=== PATIENT | female | born 1965 | race Caucasian/White ===

== ENCOUNTER 2025-02-23 15:22 | Inpatient (IN) | payer BC, OTHER ==
[2025-02-23] MEDS ORDERED: MORPHINE 4 MG/ML SYR ONE (16:11)
[2025-02-23] MEDS ORDERED: ONDANSETRON 4 MG/2 ML VIAL ONE ×2 (16:11→21:20)
[2025-02-23] MEDS ORDERED: FAMOTIDINE 20 MG/2 ML VIAL IV ONE (16:12)
[2025-02-23] MEDS ORDERED: NA CHLORIDE 0.9% 1,000 ML ONE (16:12)
[2025-02-23 16:32] LABS: Absolute Eosinophils 0.1 K/uL (0-0.5); Absolute Lymphocytes (CBC) 2.8 K/uL (0.7-4.9); Absolute Monocytes 1.2 K/uL (0.1-1.3); Absolute Neutrophil 6.4 K/uL (1.8-8.0); Basophils % 0.4 % (0-1.3); Eosinophils % 0.7 % (0-4.4); Hematocrit 43.6 % (36.0-45.0); Hemoglobin 15.2 g/dL (12.0-15.0); Lymphocytes % 26.5 % (15.3-44.8); MCH 31.2 pg (27.0-35.0); MCV 89.2 fL (80-100); MPV 8.3 fL (7.6-11.3); Monocytes % 11.8 % (3.3-12.3); Neutrophils % 60.6 % (41.7-73.7); Nucleated Red Blood Cells % 0.1 % (0-0); Platelets 349 thou/uL (152-406); RBC Red Blood Cell Count 4.89 M/uL (3.86-4.86); Red Cell Distribution Width 14.9 % (12.1-15.2)
[2025-02-23 17:05] LABS: Albumin 3.9 g/dL (3.4-5.0); Albumin/Globulin Ratio 1.1 (1.1-1.8); Anion Gap 13.1 mEq/L (5.0-15.0); Bilirubin Total 0.5 mg/dL (0.2-1.0); Globulin 3.7 g/dL (2.3-3.5); Potassium 2.7 mEq/L (3.5-5.1); Protein, Total 7.6 g/dL (6.4-8.2); Troponin High Sensitivity 29.9 pg/mL (<58.9)
--- NOTE | 2025-02-23 18:38 | RAD REPORT ---
EXAMINATION: Abdomen Pelvis W Contrast CLINICAL INDICATION: Female, 59 years old.ABD PAIN TECHNIQUE: CT abdomen and pelvis was performed, after the administration of IV contrast, as per depar tment protocol. Axial, sagittal and coronal reconstructions were obtained. One or more of the following dose reduction techniques were used: Automated exposure control, adjustment of the mA and/o r kV according to patient size, and/or iterative reconstruction. Unless otherwise specified, incidental findings do not require dedicated imaging follow-up. [id number]. COMPARISON: Gastric emptying study dated 04/13/2016. FINDINGS: LOWER CHEST: No acute process identified.No significant pericardial effusion. UPPER GI: The stomach is distended with fluid. LIVER: Hepatic steatosis, but otherwise unremarkable. GALLBLADDER/BILE DUCTS: Cholecystectomy. Moderate extrahepatic biliary ductal dilatation. This could be secondary to the post-cholecystectomy state. Recommend correlation with LFT's. If abnormal, consider MRCP for further evaluation. ?Mild intrahepatic biliary duct dilatation. PANCREAS: No mass, ductal dilation, or trevor-pancreatic fluid. SPLEEN: Unremarkable. ADRENALS: No adrenal masses. KIDNEYS AND URETERS: No hydronephrosis.No suspicious renal mass.No renal calculi.No ureteral calculi. ABDOMINAL AORTA AND OTHER VESSELS: Moderate atherosclerotic changes without aortic aneurysm. PERITONEUM: No abnormal free fluid. No free air. LYMPH NODES: No pathologic lymphadenopathy. ABDOMINAL WALL: Unremarkable SMALL BOWEL/COLON: No bowel obstruction. Most of the proximal small bowel is clustered in the right h emiabdomen. The duodenum, for example, does not cross midline. URINARY BLADDER: Underdistended but grossly unremarkable. REPRODUCTIVE ORGANS: No pathologic process. MUSCULOSKELETAL: Bone graft harvest site at the left iliac bone.. Mild disc height loss L5-S1. ADDITIONAL FINDINGS: None. IMPRESSION: Fluid distended stomach. 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 No bowel obstruction identified. Gastric outlet obstruction versus gastroparesis.
--- NOTE | 2025-02-23 19:35 | ER ---
Nurse's Notes [facility] Name: Ayla Galindo Age: 59 yrs Sex: Female : 1965 Arrival Date: 02/23/2025 Time: 15:22 Bed 4 Private MD: Diagnosis: Hematemesis;Hyponatremia;Hypokalemia Presentation: 02/23 16:17 Chief complaint: Patient states: Upper abdominal and chest pain, N/V x approx 2 weeks. ph Coronavirus screen: Vaccine status: Patient reports receiving the 1st dose of the Covid vaccine. Ebola Screen: No symptoms or risks identified at this time. Initial Sepsis Screen: Does the patient meet any 2 criteria? No. Patient's initial sepsis screen is negative. Does the patient have a suspected source of infection? No. Patient's initial sepsis screen is negative. Risk Assessment: Do you want to hurt yourself or someone else? Patient reports no desire to harm self or others. Onset of symptoms was February 23, 2025. 16:17 Method Of Arrival: Ambulatory ph 16:17 Acuity: KARLOS 2 ph Triage Assessment: 16:21 General: Appears in no apparent distress. comfortable, slender, well groomed, Behavior ph is calm, cooperative, appropriate for age. Pain: Complains of pain in chest and abdomen. Neuro: Level of Consciousness is awake, alert, obeys commands, Oriented to person, place, time, situation. Cardiovascular: Reports chest pain, nausea, vomiting. Respiratory: Airway is patent Respiratory effort is even, unlabored. GI: Reports lower abdominal pain, upper abdominal pain, nausea, vomiting. Derm: Skin is pink, warm \T\ dry. Musculoskeletal: Circulation, motion, and sensation intact. Range of motion: intact in all extremities. Historical: - Allergies: 16:19 SHELLFISH; ph - Home Meds: 16:19 Clonidine Oral [Active]; ph - PMHx: 16:19 Hypertensive disorder; Asthma; ph - PSHx: 16:19 Cholecystectomy; section; ph - Immunization history:: Adult Immunizations unknown. - Infectious Disease History:: Denies. - Social history:: Smoking status: unknown. - Family history:: not pertinent. Screenin:23 [facility] ED Fall Risk Assessment (Adult) History of falling in the last 3 months, ph including since admission No falls in past 3 months (0 pts) Confusion or Disorientation No (0 pts) Intoxicated or Sedated No (0 pts) Impaired Gait No (0 pts) Mobility Assist Device Used No (0 pt) Altered Elimination No (0 pt) Score/Fall Risk Level 0 - 2 = Low Risk Oriented to surroundings, Maintained a safe environment, Hourly rounding (assess needs \T\ fall precautionary measures) done. Abuse screen: Denies threats or abuse. Denies injuries from another. Nutritional screening: No deficits noted. Tuberculosis screening: No symptoms or risk factors identified. Assessment: 17:29 General: SEE TRIAGE ASSESSMENT. ph 18:46 Reassessment: Patient appears in no apparent distress at this time. No changes from ld1 previously documented assessment. Patient and/or family updated on plan of care and expected duration. Pain level reassessed. 21:50 Pain: Pain does not radiate. Pain began gradually. kd3 Vital Signs: 16:17 BP 136 / 95; Pulse 98; Resp 18; Temp 98; Pulse Ox 97% on R/A; Weight 49.9 kg; Height 5 ph ft. 6 in. ; 17:28 BP 146 / 72; Pulse 86; Resp 18; Pulse Ox 98% on R/A; ph 18:46 BP 128 / 68; Pulse 88; Resp 18; Pulse Ox 95% on R/A; ld1 21:49 BP 121 / 71; Pulse 84; Resp 19; Pulse Ox 98% on R/A; kd3 16:17 Body Mass Index 17.75 (49.90 kg, 167.64 cm) ph ED Course: 15:23 Patient arrived in ED. gl 15:25 Will Heart MD is Attending Physician. rt 15:25 Arm band placed on Patient placed in an exam room, on a stretcher. ll1 15:40 Initial lab(s) drawn, by me, sent to lab. Inserted saline lock: 20 gauge in left ld1 antecubital area, using aseptic technique. Blood collected. Flushed with 10 mL NS. 16:17 Alma Delia Dobbins, RN is Primary Nurse. ph 16:19 Triage completed. ph 16:23 Patient maintains SpO2 saturation greater than 95% on room air. ph 16:24 Patient has correct armband on for positive identification. Placed in gown. Bed in low ph position. Call light in reach. Side rails up X 1. school lunch monitor on. Pulse ox on. NIBP on. Door closed. Noise minimized. Warm blanket given. Pillow given. 17:03 Radiology exam delayed due to lab results not completed at this time. (BUN/Creatinine). nj 18:14 CT Abd/Pelvis - IV Contrast Only In Process Unspecified. EDMS 19:33 Prince Fletcher MD is Hospitalizing Provider. rt 21:16 Inserted saline lock: 22 gauge in left forearm, using aseptic technique. kd3 21:50 Provided Education on: admission . kd3 21:50 No provider procedures requiring assistance completed. Patient admitted, IV remains in kd3 place. Administered Medications: 16:17 Drug: Famotidine IVP 20 mg IVP once; dilute with 10 mL 0.9% NaCl; give over 2 minutes ld1 Route: IVP; Site: left antecubital; 19:02 Follow up: Response: No adverse reaction ph 16:17 Drug: Ondansetron IVP 4 mg IVP once; over 2 minutes Route: IVP; Site: left antecubital; ld1 19:02 Follow up: Response: No adverse reaction ph 16:17 Drug: morphine IVP or IV 4 mg IVP once over 4 mins Route: IVP; Infused Over: 4 mins; ld1 Site: left antecubital; 19:02 Follow up: Response: No adverse reaction ph 16:17 Drug: NS 0.9% IV 1000 ml IV at 1 bolus Per protocol; to be given as a bolus over 60 ld1 minutes Route: IV; Rate: 1 bolus; Site: left antecubital; 17:30 Follow up: Response: No adverse reaction; IV Status: Completed infusion; IV Intake: ph 1000ml 21:49 Drug: Pantoprazole IVP 80 mg IVP once Route: IVP; Site: left forearm; kd3 21:49 Drug: Pantoprazole IV 8 mg/hr IV at 25 ml/hr continuous; (Standard dilution is 80 mg in kd3 250 mL NS) Route: IV; Rate: 25 ml/hr; Site: left forearm; 21:49 Drug: Potassium Chloride IV 40 mEq IV at calculated rate once; administer over 4 hours kd3 Route: IV; Rate: calculated rate; Site: left antecubital; 21:49 Drug: Ondansetron IVP 4 mg IVP once; over 2 minutes Route: IVP; Site: left forearm; kd3 Medication: 16:23 VIS not applicable for this client. ph Intake: 17:30 IV: 1000ml; Total: 1000ml. ph Outcome: 19:34 Decision to Hospitalize by Provider. rt 21:50 Admitted to Med/surg accompanied by dandy aguero 21:50 Condition: stable 21:50 Discharge instructions given to patient, Instructed on the need for admit, Demonstrated understanding of instructions, Prescriptions given X 21:50 Patient left the ED. kd3 Signatures: Dispatcher [employer] EDAlma Delia Almanza RN RN ph Kike Nunez Lynsay, RN RN ll1 Essie Kan RN RN ld1 Radha Bunch RN RN kd3 Will Heart MD MD rt Tia Hurley, Reg Reg gl Corrections: (The following items were deleted from the chart) 16:19 16:17 BP 136 / 95; Pulse 98bpm; Resp 18bpm; Pulse Ox 97% RA; ph ph
--- NOTE | 2025-02-23 19:36 | EDPHYS ---
Physician Documentation [facility] Name: Ayla Galindo Age: 59 yrs Sex: Female : 1965 Arrival Date: 02/23/2025 Time: 15:22 Bed 4 Private MD: ED Physician Will Heart HPI: 02/23 17:54 This 59 yrs old Female presents to ER via Ambulatory with complaints of Chest Pain. rt 17:54 Patient with known gastric and duodenal ulcers presents to the ED with 2 weeks of rt worsening of abdominal pain, nausea, vomiting. Patient states that she started developing a chest pain. States that she was vomiting blood yesterday and today. Was seen at the GI center today, sent for further eval from the ep technologist. Denies other acute complaints at this time, symptoms are moderate in severity, no other aggravating or alleviating factors.. Historical: - Allergies: 16:19 SHELLFISH; ph - Home Meds: 16:19 Clonidine Oral [Active]; ph - PMHx: 16:19 Hypertensive disorder; Asthma; ph - PSHx: 16:19 Cholecystectomy; section; ph - Immunization history:: Adult Immunizations unknown. - Infectious Disease History:: Denies. - Social history:: Smoking status: unknown. - Family history:: not pertinent. ROS: 17:54 Constitutional: Negative for fever, chills, and weight loss, Respiratory: Negative for rt shortness of breath, cough, wheezing, and pleuritic chest pain, MS/Extremity: Negative for injury and deformity, Skin: Negative for injury, rash, and discoloration, 17:54 Cardiovascular: Positive for chest pain, Negative for edema, 17:54 Abdomen/GI: Positive for nausea and vomiting, hematemesis, Exam: 17:54 Constitutional: This is a well developed, well nourished patient who is awake, alert, rt and in no acute distress. Head/Face: Normocephalic, atraumatic. Chest/axilla: Normal chest wall appearance and motion. Nontender with no deformity. No lesions are appreciated. Cardiovascular: Regular rate and rhythm with a normal S1 and S2. No gallops, murmurs, or rubs. Normal PMI, no JVD. No pulse deficits. Respiratory: Lungs have equal breath sounds bilaterally, clear to auscultation and percussion. No rales, rhonchi or wheezes noted. No increased work of breathing, no retractions or nasal flaring. Skin: Warm, dry with normal turgor. Normal color with no rashes, no lesions, and no evidence of cellulitis. MS/ Extremity: Pulses equal, no cyanosis. Neurovascular intact. Full, normal range of motion. Neuro: Awake and alert, GCS 15, oriented to person, place, time, and situation. Cranial nerves II-XII grossly intact. Motor strength 5/5 in all extremities. Sensory grossly intact. Cerebellar exam normal. Normal gait. 17:54 ECG was reviewed by the Attending Physician. 17:54 Abdomen/GI: Tenderness to the epigastrium without rebound, guarding, distention, Vital Signs: 16:17 BP 136 / 95; Pulse 98; Resp 18; Temp 98; Pulse Ox 97% on R/A; Weight 49.9 kg; Height 5 ph ft. 6 in. ; 17:28 BP 146 / 72; Pulse 86; Resp 18; Pulse Ox 98% on R/A; ph 18:46 BP 128 / 68; Pulse 88; Resp 18; Pulse Ox 95% on R/A; ld1 21:49 BP 121 / 71; Pulse 84; Resp 19; Pulse Ox 98% on R/A; kd3 16:17 Body Mass Index 17.75 (49.90 kg, 167.64 cm) ph MDM: 15:30 Medical Screening Exam initiated rt 19:53 Differential diagnosis: Hematemesis, ACS, ulcer. Data reviewed: vital signs, nurses rt notes, lab test result(s), EKG, radiologic studies. Consideration of Admission/Observation Patient was admitted/placed on observation. Management of patient was discussed with the following: Manager Part: Discussed with GI on-call, will scope tomorrow.. I considered the following discharge prescriptions or medication management in the emergency department Medications were administered in the Emergency Department. See MAR. Independent interpretation of the following test(s) in the Emergency Department CT Scan: My interpretation is No bowel obstruction seen on my interpretation of CT scan images. Care significantly affected by the following chronic conditions: Hypertension. Counseling: I had a detailed discussion with the patient and/or guardian regarding the historical points, exam findings, and any diagnostic results supporting the discharge/admit diagnosis, lab results, radiology results, the need for further work-up and treatment in the hospital. Response to treatment: the patient's symptoms have markedly improved after treatment. 02/23 15:49 Order name: CBC with Diff; Complete Time: 17:07 rt 02/23 15:49 Order name: CMP; Complete Time: 17:07 rt 02/23 15:49 Order name: Lipase; Complete Time: 17:07 rt 02/23 15:49 Order name: Troponin High Sensitivity; Complete Time: 17:07 rt 02/23 19:34 Order name: Lactate w/ 2H reflex if indic. EDMS 02/23 19:34 Order name: Magnesium EDMS 02/23 19:34 Order name: Phosphorus EDMS 02/23 19:34 Order name: Basic Metabolic Panel EDMS 02/23 19:35 Order name: Basic Metabolic Panel EDMS 02/23 19:35 Order name: CBC with Automated Diff EDMS 02/23 19:35 Order name: CBC with Automated Diff EDMS 02/23 15:49 Order name: CT Abd/Pelvis - IV Contrast Only; Complete Time: 18:40 rt 02/23 15:49 Order name: EKG; Complete Time: 15:49 rt 02/23 15:49 Order name: IV Saline Lock; Complete Time: 16:16 rt 02/23 15:49 Order name: Labs collected and sent; Complete Time: 16:16 rt 02/23 15:49 Order name: EKG - Nurse/Tech; Complete Time: 16:16 rt EC:54 Rate is 94 beats/min. Rhythm is regular, Normal Sinus Rhythm with No ectopy. QRS [place] rt is Normal. ID interval is normal. QRS interval is normal. QT interval is normal. No Q waves. Clinical impression: NSR w/ Non-specific ST/T Changes. Administered Medications: 16:17 Drug: Famotidine IVP 20 mg IVP once; dilute with 10 mL 0.9% NaCl; give over 2 minutes ld1 Route: IVP; Site: left antecubital; 19:02 Follow up: Response: No adverse reaction ph 16:17 Drug: Ondansetron IVP 4 mg IVP once; over 2 minutes Route: IVP; Site: left antecubital; ld1 19:02 Follow up: Response: No adverse reaction ph 16:17 Drug: morphine IVP or IV 4 mg IVP once over 4 mins Route: IVP; Infused Over: 4 mins; ld1 Site: left antecubital; 19:02 Follow up: Response: No adverse reaction ph 16:17 Drug: NS 0.9% IV 1000 ml IV at 1 bolus Per protocol; to be given as a bolus over 60 ld1 minutes Route: IV; Rate: 1 bolus; Site: left antecubital; 17:30 Follow up: Response: No adverse reaction; IV Status: Completed infusion; IV Intake: ph 1000ml 21:49 Drug: Pantoprazole IVP 80 mg IVP once Route: IVP; Site: left forearm; kd3 21:49 Drug: Pantoprazole IV 8 mg/hr IV at 25 ml/hr continuous; (Standard dilution is 80 mg in kd3 250 mL NS) Route: IV; Rate: 25 ml/hr; Site: left forearm; 21:49 Drug: Potassium Chloride IV 40 mEq IV at calculated rate once; administer over 4 hours kd3 Route: IV; Rate: calculated rate; Site: left antecubital; 21:49 Drug: Ondansetron IVP 4 mg IVP once; over 2 minutes Route: IVP; Site: left forearm; kd3 Disposition: 19:53 Critical Care:. rt Disposition Summary: 02/23/25 19:34 Hospitalization Ordered Notes: Hospitalization Status: Inpatient Admission rt Provider: Prince Chance rt Location: Telemetry/[facility] (Inpatient) rt Condition: Fair rt Problem: new rt Symptoms: have improved rt Bed/Room Type: Standard rt Room Assignment: 215(02/23/25 19:46) rv1 Diagnosis - Hematemesis rt - Hyponatremia rt - Hypokalemia rt Forms: - Medication Reconciliation Form rt - SBAR form rt - Leadership Thank You Letter rt Critical care time excluding procedures: 19:53 Critical care time: Bedside Care: 30 minutes, Consultation: 10 minutes. Total time: 40 rt minutes Signatures: Dispatcher [employer] Alma Delia Young RN RN Essie Kan RN RN ld1 Radha Bunch RN RN kd3 Will Heart MD MD rt Shazia Long rv1 Corrections: (The following items were deleted from the chart) 19:46 19:34 rt rv1
[2025-02-23] MEDS ORDERED: SODIUM CHLORIDE 0.9% 10ML INJ IV PRN (20:00)
--- NOTE | 2025-02-23 20:00 | P.HP ---
Certification for Inpatient Patient admitted to: Observation With expected LOS: <2 Midnights Practitioner: I am a practitioner with admitting privileges, knowledge of patient current condition, hospital course, and medical plan of care. Services: Services provided to patient in accordance with Admission requirements found in Title 42 Section 412.3 of the Code of Federal Regulations Patient History Date of Service: 02/23/25 Reason for admission: GI bleeding History of Present Illness: Patient is a 59 year old female with a PMH of HTN, gastroparesis and peptic ulcer disease. She presented to the ER acute episodes of hematemesis which occurred yesterday morning. Patient has been struggling with upper GI bleeding for the past several months. She is known to Dr. Gomez. Past endoscopic evaluation revealed peptic ulcer disease. She is supposed to be on pantoprazole and Carafate but could not remain compliant due to intractable nausea and vomiting. She was seen at [place] [facility] for dehydration caused by nausea and vomiting. Was was discharged the same day only to return here today for hematemesis. She arrived in the ER in distress and hypovolemic. She received IV fluid and pantoprazole. She is also getting potassium replacement for potassium of 2.6. ER has contacted Dr. Arana. Plan to proceed with EGD tomorrow. Patient denies being on NSAIDs. Physical Examination - Physical Exam General: In no apparent distress, Other (Clinically dry) HEENT: Atraumatic, Normocephalic Respiratory: Clear to auscultation bilaterally, Normal air movement Cardiovascular: No edema, Normal pulses, Regular rate/rhythm, Normal S1 S2 Gastrointestinal: Soft and benign, Non-distended, Other (Scaphoid abdomen) Neurological: Normal speech - Studies Laboratory Data (last 24 hrs) 02/23/25 02/23/25 16:10 16:10 WBC 10.50 Hgb 15.2 H Hct 43.6 Plt Count 349 Sodium 126 L Potassium 2.7 L BUN 22 H Creatinine 1.07 H Glucose 75 Total Bilirubin 0.5 AST 26 ALT 26 Alkaline Phosphatase 86 Lipase 23 Assessment and Plan - Problems (Diagnosis) (1) Upper GI bleeding Current Visit: Yes Status: Acute (2) Gastroparesis Current Visit: Yes Status: Acute (3) Hypertension Current Visit: Yes Status: Acute (4) Hypokalemia Current Visit: Yes Status: Acute (5) Hyponatremia Current Visit: Yes Status: Acute - Plan Assessment This is a 59-year-old female with known history of gastroparesis and peptic ulcer disease. She is being admitted after she presented with hematemesis. Her hemoglobin was more than 15 upon presentation. Patient is undergoing volume repletion. Upper GI bleeding Hypokalemia Hyponatremia Gastroparesis Hypertension Plan: Will admit under observation with telemetry Continue IV fluid Will also start patient on IV pantoprazole She is unable to tolerate p.o. Replete electrolytes GI consulted Patient is full code - Advance Directives Does patient have a Living Will: No Does patient have a Durable POA for Healthcare: No
[2025-02-23] MEDS ORDERED: NA CHLORIDE 0.9% 250 ML ONE (21:20)
[2025-02-23] MEDS ORDERED: PANTOPRAZOLE 40 MG INJ ONE (21:20)
[2025-02-23] MEDS ORDERED: KCL 20 MEQ/100 mL IVPB 200 ML IV ONE (21:21)
[2025-02-23 22:41] VITALS: BMI 18.3
[2025-02-23] MEDS: PANTOPRAZOLE 40 MG INJ IVP SCH (23:00)
[2025-02-24] MEDS: NA CHLORIDE 0.9% 1,000 ML IV SCH (05:45)
[2025-02-24 06:17] LABS: Absolute Basophils 0.1 K/uL (0-0.5); Absolute Eosinophils 0.2 K/uL (0-0.5); Absolute Lymphocytes (CBC) 3.2 K/uL (0.7-4.9); Absolute Monocytes 0.7 K/uL (0.1-1.3); Absolute Neutrophil 3.1 K/uL (1.8-8.0); Basophils % 0.7 % (0-1.3); Eosinophils % 2.1 % (0-4.4); Hematocrit 37.6 % (36.0-45.0); Lymphocytes % 44.3 % (15.3-44.8); MCH 30.8 pg (27.0-35.0); MCHC 34.7 g/dL (32.0-36.0); MCV 88.9 fL (80-100); MPV 7.7 fL (7.6-11.3); Monocytes % 9.5 % (3.3-12.3); Neutrophils % 43.4 % (41.7-73.7); Platelets 307 thou/uL (152-406); RBC Red Blood Cell Count 4.23 M/uL (3.86-4.86)
[2025-02-24 06:52] LABS: Anion Gap 12.5 mEq/L (5.0-15.0); Magnesium 1.9 mg/dL (1.6-2.4); Phosphorus 3.3 mg/dL (2.5-4.9)
[2025-02-24 06:54] LABS: Potassium 2.5 mEq/L (3.5-5.1)
--- NOTE | 2025-02-24 07:48 | P.PN ---
Date of Service: 02/24/25 Subjective: reports intermittent nausea/vomiting for several months 1-2 days ago emesis started to become black/bloody feeling better today overall unable to tolerate oral intake / home meds Physical Exam: GEN: Alert, oriented, NAD CV: Regular rate and rhythm, no edema Pulm: Nonlabored respirations on room air, clear bilaterally ABD: soft, mild epigastric tenderness Neuro: Normal speech, normal affect Problem List: Hematemesis Upper GI bleed Hyponatremia Hypokalemia Hypertension Hx Peptic Ulcer Disease Hx Gastroparesis Hx Malrotation on admission, presents with hematemesis which started day before admission, associated with weakness. Has history of Upper GI bleed. Was at [place] [facility] hours before coming here for nausea/vomiting/dehydration. Reports taking Protonix/Carafate at home but continued with N/V Follows GI as outpatient. Prior EGD noted peptic ulcer disease Denies frequent NSAID use CT abdomen with findings consistent with gastric outlet obstruction vs gastroparesis Patient known to have Hx of gastroparesis and malrotation Dr. Arana, GI consulted NPO for tentative EGD discussed with GI, will eval later today, hypokalemia may delay EGD IV Protonix BID continue IV hydration Monitor and replete electrolytes as needed Confirm home meds, restart as appropriate VTE: SCD given bleed GI: IV protonix BID Code: Full Dispo: Home Pending EGD, GI recs Time Spent Managing Pts Care (In Minutes): 55
[2025-02-24] MEDS: KCL 20 MEQ/100 mL IVPB 20 MEQ/100 ML BAG IV SCH (08:30)
[2025-02-24] MEDS: MORPHINE 2 MG/ML SYR IV PRN (11:17)
[2025-02-24] MEDS: ONDANSETRON 4 MG/2 ML VIAL IV PRN (11:17)
[2025-02-25 06:37] LABS: Hematocrit 34.2 % (36.0-45.0); Hemoglobin 11.8 g/dL (12.0-15.0); MCH 31.2 pg (27.0-35.0); MCHC 34.6 g/dL (32.0-36.0); MCV 90.3 fL (80-100); MPV 8.7 fL (7.6-11.3); Platelets 254 thou/uL (152-406); RBC Red Blood Cell Count 3.79 M/uL (3.86-4.86); Red Cell Distribution Width 14.7 % (12.1-15.2)
[2025-02-25 06:55] LABS: Anion Gap 4.7 mEq/L (5.0-15.0); Magnesium 1.6 mg/dL (1.6-2.4); Potassium 2.7 mEq/L (3.5-5.1)
[2025-02-25] MEDS: MAGNESIUM SULFATE 1 gm IVPB 1 GM/100 ML BAG IV ONE (08:05)
[2025-02-25] MEDS: KCL 20 MEQ/100 mL IVPB 20 MEQ/100 ML BAG IV SCH (08:06)
--- NOTE | 2025-02-25 10:38 | P.PN ---
Date of Service: 02/25/25 Subjective: Feels ~same as yesterday but improved compared to admission no further episodes of emesis but has been NPO UOP improving no acute events overnight abd pain not as tender Physical Exam: GEN: Alert, oriented, NAD CV: Regular rate and rhythm, no edema Pulm: Nonlabored respirations on room air, clear bilaterally ABD: soft, very minimal epigastric tenderness, nondistended Neuro: Normal speech, normal affect Problem List: Duodenal stricture Hematemesis Hyponatremia, improving Hypokalemia; persistent Hypertension Hx Peptic Ulcer Disease Hx Gastroparesis Hx Malrotation on admission, presents with hematemesis which started day before admission, associated with weakness. Has history of Upper GI bleed. Was at [place] ER hours before coming here for nausea/vomiting/dehydration. Reports taking Protonix/Carafate at home but continued with N/V Follows GI as outpatient. Prior EGD noted peptic ulcer disease Denies frequent NSAID use CT abdomen with findings consistent with gastric outlet obstruction vs gastroparesis Patient known to have Hx of gastroparesis and malrotation Dr. Arana, GI consulted EGD delayed secondary to persistent hypokalemia. Hypokalemia secondary to persistent nausea/vomiting, poor intake, NPO s/p EGD (02/25): found to have duodenal stricture without any blood seen. Also was noted to have 700cc of fluids and undigested food in stomach. Initiate transfer to tertiary level of care facility for high level of care given EGD findings IV Protonix BID continue IV hydration, pain control Monitor and replete electrolytes as needed Confirm home meds, restart as appropriate VTE: SCD given bleed GI: IV protonix BID Code: Full Dispo: Initiate transfer due to severe duodenal stenosis Time Spent Managing Pts Care (In Minutes): 55
[2025-02-25] MEDS ORDERED: LIDOCAINE 1% MPF 30 ML VIAL ONE (12:35)
[2025-02-25] MEDS ORDERED: propofoL 200 MG/20 ML VIAL IV ONE (12:35)
[2025-02-25] MEDS: EPINEPHRINE 1 MG/ML VIAL ONE (12:39)
[2025-02-25 12:44] LABS: Magnesium 1.9 mg/dL (1.6-2.4)
[2025-02-25 13:48] VITALS: O2SAT 96
[2025-02-25 16:23] VITALS: BP 134/63; TEMP 97.7
--- NOTE | 2025-02-25 16:30 | RAD REPORT ---
DOUBLE CONTRAST UPPER GI HISTORY: define duodenal bulb stricture TECHNIQUE: Single contrast UGI was performed. Fluoroscopic spot films were obtained. FINDINGS: The esophagus is normal in course and caliber, and is well distended. The gastroesophageal junction is normally positioned. Gaseous distention of the stomach which is otherwise unremarkable. Contrast could be seen traversing the peripyloric region and entering the second portion of the duode num where there is an abrupt blockage of contrast. This area was evaluated both lies and with delayed images at 20 minutes. No appreciable contrast traversed the site of obstruction. IMPRESSION: Abrupt obstruction at the second portion of the duodenum. No contrast could be seen beyond the obstru ction. A series of delayed images was also obtained at 20 minutes to assess for any appreciable contrast passage. None was seen. The obstruction is either high-grade or complete.
--- NOTE | 2025-02-25 17:03 | CON ---
Reason For Consultation: Hematemesis with history of bleeding peptic ulcer disease in the past. History Of Present Illness: The patient is a 59-year-old white female with history of upper GI duode nal ulcer bleed recently and gut malrotation, gastroparesis, and hypertension. The patient is in the hospital with hematemesis. The patient is stable now. Blood pressure, vital signs stable. The pat williams states that she had some events of hematemesis. She notes recent approximately 2 weeks ago uppe r endoscopy with duodenal ulcer noted with cauterization in [facility] Center here in [place], [place]. T he patient called our office and she is bleeding again. Told her to go to the emergency room. The p shyanne said bleeding began on Friday, 2 days ago, and came to the emergency room for further evaluat ion and care. Past Medical History: Significant for gut malrotation, duodenal ulcer with bleed recently, gastropar esis, hypertension. Medications: See list. Allergies: NKDA. Social History: She is . No tobacco. No alcohol. Two children. One child in a motor vehicle accident as did her mother. Family History: Father of old age, congestive heart failure. Mother in a motor vehicle ac cident. Review of Systems: The patient has hematemesis. She feels lightheaded, some tightness, at least prior to admission. Sh e states she feels much better now since IV fluids in the emergency room. Hemoglobin 15, down to 13 so far. She denies any melena, hematochezia, epistaxis, hematuria, dysuria, polydipsia, chest pain, shortness of breath, seizure, syncope, muscle aches, joint aches, backaches. She has depression and anxiety. Physical Examination: Vital Signs: The patient is 5 feet 6 inches, 113 pounds. BMI of 18.4 kg/m2. Temperature of 98 degr ees Fahrenheit, pulse 70, respirations 16, blood pressure 104/62, O2 saturation 97% to 98% on room ai r. General: She is a well-nourished, well-developed female, lying in bed, actively energetic with husba nd at bedside . HEENT: Normocephalic, atraumatic. Anicteric. Pupils equal, round, and reactive to light. Extraocu lar movements intact. Oropharynx clear. Neck: Supple. No masses. Respirations: Clear to auscultation bilaterally. Cardiac: Regular rate and rhythm. No gallops. Abdomen: Positive bowel sounds. Soft, nontender, nondistended. No hepatosplenomegaly. Extremities: No clubbing, cyanosis, or edema. 2+ pulses. Neuro: Alert and oriented x3, grossly nonfocal. 5/5 motor sensation to light touch. Laboratory Data: The patient has a white count of 7.2, down from 10.5 yesterday. Hemoglobin 13, saulo n from 15.2 yesterday. MCV of 89, platelet count of 307, polys of 43%, lymphocytes 44%, monocytes 10 %, and eosinophils 2%. Sodium 132, potassium 2.5, chloride 87, bicarb 35, BUN 17, creatinine of 0.9, glucose 74, lactate 0.8, calcium 8.9, phosphorus 3.3, magnesium 1.9. CT abdomen and pelvis reveals fluid distended stomach, small bowel malrotation with duodenum on the right upper quadrant without __ in the right jame abdomen. No bowel obstruction noted. Gastric outlet obstruction versus g astroparesis noted. Impression: 1. Hematemesis with history of recent duodenal ulcer with cauterization approximately 2 weeks ago. H emoglobin 15.2, down to 13 in the hospital. Patient has no more hematemesis events since in hospital , on PPI therapy and hemodynamically stable at this time. Potassium is low at 2.5, will need to be r epleted. 2. History of gut malrotation. 3. Duodenal ulcer bleeding recently with cauterization. 4. Gastroparesis. 5. Hypertension. Recommendation: 1. Continue IV fluid resuscitation. 2. Continue PPI therapy. 3. Serial H and H and transfuse p.r.n. 4. Proceed with urgent EGD. 5. Keep patient n.p.o. SINAN/VIOLETA Voice ID: [id number] Report ID: [id number]
--- NOTE | 2025-02-25 17:50 | P.DS ---
Admission Date: 02/24/25 Discharge Date: 02/25/25 Disposition: TRANSFER TO [facility] Discharge Condition: FAIR Reason for Admission: GI bleeding Brief History of Present Illness: 59 year old female with a PMH of HTN, gastroparesis and peptic ulcer disease. She presented to the ER acute episodes of hematemesis which occurred yesterday morning. Patient has been struggling with upper GI bleeding for the past several months. She is known to Dr. Gomez. Past endoscopic evaluation revealed peptic ulcer disease. She is supposed to be on pantoprazole and Carafate but could not remain compliant due to intractable nausea and vomiting. She was seen at [facility] for dehydration caused by nausea and vomiting. Was was discharged the same day only to return here today for hematemesis. She arrived in the ER in distress and hypovolemic. She received IV fluid and pantoprazole. She is also getting potassium replacement for potassium of 2.6. ER has contacted Dr. Arana. Plan to proceed with EGD tomorrow. Patient denies being on NSAIDs. Hospital Course: Problem List: Duodenal stricture, severe Hematemesis secondary to suspected ulcer / stricture Hyponatremia, improving Hypokalemia; persistent Hypertension Hx Peptic Ulcer Disease Hx Gastroparesis Hx Malrotation Patient presented with hematemesis which started day before admission, associated with weakness. She was recently at [facility] hours before coming here for nausea/vomiting/dehydration and was given scripts for Protonix/Carafate however continued with nausea and vomiting. She is known to history of peptic ulcer disease, gastroparesis, malrotation, and follows with GI on an outpatient basis. CT abdomen on admission with findings consistent with gastric outlet obstruction vs gastroparesis, although patient is known to have a history of gastroparesis and malrotation. Patient was evaluated by Dr. Arana, GI who was planning for EGD to further evaluate however procedure was delayed due to persistent hypokalemia. Hypokalemia secondary to persistent nausea/vomiting, poor intake, NPO. She underwent EGD on 02/25 once her potassium improved and was found to have a severe duodenal stricture, with 700cc of fluid retained in proximal duodenum and food in stomach Given the EGD findings, Dr. Arana recommended initiating transfer to tertiary level of care facility for advanced GI. Physical Exam: GEN: Alert, oriented, NAD CV: Regular rate and rhythm, no edema Pulm: Nonlabored respirations on room air, clear bilaterally ABD: soft, minimal epigastric tenderness, nondistended Neuro: Normal speech, normal affect Vital Signs/Physical Exam: Temp Pulse Resp BP Pulse Ox 97.7 F 71 18 134/63 98 02/25/25 16:00 02/25/25 16:00 02/25/25 16:00 02/25/25 16:00 02/25/25 16:00 Laboratory Data at Discharge: WBC 7.50 thou/uL (4.3-10.9) 02/25/25 05:35 Hgb 11.8 g/dL (12.0-15.0) L D 02/25/25 05:35 Hct 34.2 % (36.0-45.0) L 02/25/25 05:35 Plt Count 254 thou/uL (152-406) 02/25/25 05:35 Sodium 139 mEq/L (136-145) 02/25/25 11:58 Potassium 3.0 mEq/L (3.5-5.1) L 02/25/25 11:58 BUN 5 mg/dL (7-18) L 02/25/25 11:58 Creatinine 0.62 mg/dL (0.55-1.02) 02/25/25 11:58 Glucose 108 mg/dL (74-106) H 02/25/25 11:58 Phosphorus 3.3 mg/dL (2.5-4.9) 02/24/25 06:02 Magnesium 1.9 mg/dL (1.6-2.4) 02/25/25 11:58 Total Bilirubin 0.5 mg/dL (0.2-1.0) 02/23/25 16:10 AST 26 U/L (15-37) 02/23/25 16:10 ALT 26 U/L (13-56) 02/23/25 16:10 Alkaline Phosphatase 86 U/L (45-117) 02/23/25 16:10 Lipase 23 U/L (13-75) 02/23/25 16:10 Home Medications: Amitriptyline HCl 75 mg PO DAILY 02/23/25 Cholecalciferol (Vitamin D3) [D3-5000] 125 mcg PO DAILY 02/23/25 Clonidine Patch [Catapres-Tts 1*] 0.1 mg TOP EVERY 7TH DAY 02/23/25 Colestipol HCl [Colestid] 1 gm BID 02/23/25 Dicyclomine [Bentyl*] 10 mg PO BID 02/23/25 Diphenoxylate HCl/Atropine [Diphenoxylate-Atrop 2.5-0.025] 1 each PO BID 02/23/25 Famotidine [Pepcid] 20 mg PO DAILY 02/23/25 Gabapentin 800 mg PO TID 02/23/25 Hydrocodone/Acetaminophen [Hydrocodon-Acetaminophn 10-325] 1 each PO QID 02/23/25 Hydrocortisone [Cortef] 10 mg PO DAILY 02/23/25 Levocetirizine Dihydrochloride [Xyzal] 5 mg PO DAILY 02/23/25 Montelukast Sodium [Singulair] 10 mg PO DAILY 02/23/25 Ondansetron [Zofran] 4 mg PO Q6H PRN 02/23/25 Oxybutynin Chloride [Oxybutynin Chloride ER] 10 mg PO DAILY 02/23/25 Pantoprazole Sodium [Protonix] 40 mg PO BID 02/23/25 methocarbamoL [Methocarbamol] 750 mg PO BID 02/23/25 Physician Discharge Instructions: Patient presented with hematemesis which started day before admission, associated with weakness. She was recently at [facility] hours before coming here for nausea/vomiting/dehydration and was given scripts for Protonix/Carafate however continued with nausea and vomiting. She is known to history of peptic ulcer disease and follow GI on an outpatient basis. CT abdomen on admission with findings consistent with gastric outlet obstruction vs gastroparesis, although patient is known to have a history of gastroparesis and malrotation. Patient was evaluated by Dr. Arana, GI who was planning for EGD to further evaluate however procedure was delayed due to persistent hypokalemia. Hypokalemia secondary to persistent nausea/vomiting, poor intake, NPO. She underwent EGD on 02/25 once her potassium improved and was found to have a duodenal stricture without any blood seen. Also was noted to have 700cc of fluids and undigested food in stomach. Given the EGD findings, Dr. Arana recommended initiating transfer to tertiary level of care facility for higher level of care. Upper GI series (02/25): Abrupt obstruction at the second portion of the duodenum. No contrast could be seen beyond the obstruction. A series of delayed images was also obtained at 20 minutes to assess for any appreciable contrast passage. None was seen. The obstruction is either high-grade or complete. Followup: Andrew Arenas MD [Primary Care Provider] - Time spent managing pt's care (in minutes): 45
--- NOTE | 2025-03-01 12:42 | EKG ---
Test Date: 2025-02-23 Test Time: 16:06:41 Penal Officer: Delicia LICEA MEASUREMENT RESULTS: Intervals: Rate: 94 VA: 170 QRSD: 100 QT: 384 QTc: 480 Webster: P: 73 VA: 170 QRS: 64 T: -59 INTERPRETIVE STATEMENTS: Normal sinus rhythm Right atrial enlargement ST & T wave abnormality, consider inferior ischemia ST & T wave abnormality, consider anterolateral ischemia Prolonged QT Abnormal ECG No previous ECG available for comparison Electronically Signed On 03-01-25 12:29:51 CDT by Fritz Jenkins
== END 2025-02-25 20:03 | disposition short-term general hospital (02) | DRG 381 ==
LOC: ER 15:22 → ERHOLD 19:31 → 2ND 21:05 → OBSVTOIN 02-24 13:29
PROVIDERS: ADMIT Internal Medicine; ATTEND Hospitalist
PROC: 0DB78ZX Excision of Stomach, Pylorus, Via Natural or Artificial Opening Endoscopic, Diagnostic (ICD-10-PCS; 2025-02-25)
PROC: 0DB68ZX Excision of Stomach, Via Natural or Artificial Opening Endoscopic, Diagnostic (ICD-10-PCS; principal; 2025-02-25 12:30)
DX: K31.5 Obstruction of duodenum (principal); E87.1 Hypo-osmolality and hyponatremia; K26.4 Chronic or unspecified duodenal ulcer with hemorrhage; K31.84 Gastroparesis; E87.6 Hypokalemia; K29.70 Gastritis, unspecified, without bleeding; K29.80 Duodenitis without bleeding; I10 Essential (primary) hypertension; K31.89 Other diseases of stomach and duodenum; Z90.49 Acquired absence of other specified parts of digestive tract; Z91.013 Allergy to seafood
CPT/HCPCS: 36415; 74177; 74240; 80048; 80053; 83605; 83690; 83735; 84100; 84132; 84484; 85025; 85027; 88305; 88312; 93005; 99285; G0378; J0171; J2003; J2270; J2405; J2470; J2704; J3475; J3480; J7030; J7050; Q9967